=== PATIENT | female | born 1960 | race Caucasian/White ===

== ENCOUNTER 2023-06-26 11:13 | Emergency (ER) | payer OTHER, SELFPAY ==
[2023-06-26 11:29] VITALS: BP 104/71; PULSE 77; RESP 18; TEMP 36.9; O2SAT 98; BMI 20.3
[2023-06-26 14:53] VITALS: BP 119/82; PULSE 77; TEMP 36.4; O2SAT 96
--- NOTE | 2023-06-26 15:33 | ED.GENADULT ---
HPI - General Adult General Chief complaint: Skin/Abscess/Foreign Body Stated complaint: Rash across body Time Seen by Provider: 06/26/23 15:04 History of Present Illness HPI narrative: This 63-year-old female comes in at the request of her primary doctor who is treating her for urinary tract infection. She had taken Macrobid about a month ago for urinary tract infection and developed a rash. She then was on doxycycline as there was suspicion of a sinus infection. Her urinary tract symptoms improved but then returned again 3 or 4 days ago. She had a urinalysis with culture and sensitivity and was started on Macrobid. She developed the rash throughout her body again after being started on Macrobid. Meanwhile her culture and sensitivity reports returned with evidence of a E coli infection. I do not have any these records here. The patient showed me a note from her doctor that this particular strain of E coli responds to Macrobid, Zosyn, or meropenem. The patient arrives with normal vital signs and states that she still is having dysuria symptoms. Related Data Home Medications Medication Instructions Recorded Confirmed hydroxyzine pamoate 50 mg capsule 50 mg PO QPM PRN insomnia 06/26/23 06/26/23 sertraline 100 mg tablet 100 mg PO DAILY 06/26/23 06/26/23 trazodone 150 mg tablet 150 mg PO QPM PRN insomnia 06/26/23 06/26/23 Previous Rx's Medication Instructions Recorded cephalexin 500 mg capsule 500 mg PO TID 7 days #21 caps 06/26/23 Allergies Allergy/AdvReac Type Severity Reaction Status Date / Time macrobid Allergy Mild all over Uncoded 06/26/23 11:41 body rash Review of Systems Status of ROS: Reports: 10 or more systems reviewed and unremarkable except as noted in History and below Narrative: Constitutional: No fevers, no weight gain or loss. Eyes: No discharge. No vision changes. HENT: No congestion, no sore throat, no ear pain. Cardiovascular: No chest pain, no palpitations. Respiratory: No shortness of breath, no wheezes, no cough. Gastrointestinal: No abdominal pain, no vomiting, no diarrhea. Genitourinary: Dysuria symptoms. Musculoskeletal: Normal range of motion. Skin: No rashes, no pruritis. Neurological: No dizziness, weakness, sensory change, speech change. Endo/Heme/Allergies: No bruising or bleeding. No polydipsia. Pysch: no suicidality, no anxiety, no insomnia. All other systems reviewed and are negative. Exam Narrative: Exam Narrative: Constitutional: Well-developed, well-nourished, no acute distress. HEENT: Normocephalic, atraumatic. Neck: Normal range of motion. Nontender. Supple. Heart: Regular. No murmurs. Normal rate. Intact distal pulses. Lungs: Clear to auscultation. No chest discomfort. No wheezes, rhonchi, or rales. Abdomen: Normal bowel sounds. Nontender. No rebound tenderness. Genitalia: Deferred. Back: No midline tenderness. Normal range of motion. Extremities: Normal range of motion. No injury. Skin: Intact. No rash. Warm. No erythema or pallor. Neurologic: No altered sensation. No weakness. Alert and oriented. Psychiatric: No suicidality. No anxiety or depression. No insomnia. Nursing notes and vitals signs are reviewed. Const: Vital Signs, click to edit/add: Vital Signs - 24 hr 06/26/23 11:29 06/26/23 14:53 Temperature 98.5 F 97.6 F Pulse Rate [Right Pulse Oximeter] 77 77 Respiratory Rate 18 Blood Pressure [Ri ght Upper Arm] 104/71 119/82 Pulse Oximetry 98 96 Oxygen Delivery Me thod Room Air Room Air Course Vital Signs Vital signs: Initial Vital Signs Temperature 98.5 F 06/26/23 11:29 Temperature Source Temporal Artery Scan 06/26/23 11:29 Pulse Rate 77 06/26/23 11:29 Respiratory Rate 18 06/26/23 11:29 Blood Pressure 104/71 06/26/23 11:29 Blood Pressure Mean 82 06/26/23 11:29 Pulse Oximetry 98 06/26/23 11:29 Oxygen Delivery Method Room Air 06/26/23 11:29 Vital Signs Temperature 98.5 F 06/26/23 11:29 Pulse Rate 77 06/26/23 11:29 Respiratory Rate 18 06/26/23 11:29 Blood Pressure 104/71 06/26/23 11:29 Pulse Oximetry 98 06/26/23 11:29 Oxygen Delivery Method Room Air 06/26/23 11:29 Temperature 97.6 F 06/26/23 14:53 Pulse Rate 77 06/26/23 14:53 Respiratory Rate 18 12/05/23 11:29 Blood Pressure 119/82 06/26/23 14:53 Pulse Oximetry 96 06/26/23 14:53 Oxygen Delivery Method Room Air 06/26/23 14:53 Discharge Plan Discharge Clinical Impression: Urinary tract infection, Allergic reaction to drug Patient Disposition: Home, Self-Care Condition: Stable Additional Instructions: Take medication as prescribed. Follow up with MD or return if worsening symptoms happen. Prescriptions: New cephalexin 500 mg capsule 500 mg PO TID 7 Days Qty: 21 0RF No Action sertraline 100 mg tablet 100 mg PO DAILY hydroxyzine pamoate 50 mg capsule 50 mg PO QPM PRN (Reason: insomnia) trazodone 150 mg tablet 150 mg PO QPM PRN (Reason: insomnia) Follow Up/Referrals: Deonte Nuñez MD [Primary Care Provider] - Stand Alone Forms: [employer] Info Instructions
[2023-06-26] MEDS: dexAMETHasone 4 MG/ML VIAL 10 MG IV (15:38)
[2023-06-26] MEDS: PIPERACILLIN/TAZOBACTAM 3.375 GM in 0.9 % SODIUM CHLORIDE Mini-bag 100 ML IVPB (15:38)
== END 2023-06-26 16:10 | disposition home or self-care (01) ==
PROVIDERS: Emergency Provider Emergency Medicine Emergency Medical Services; PCP Family Medicine
DX: R21 Rash and other nonspecific skin eruption (principal); T37.8X5A Adverse effect of other specified systemic anti-infectives and antiparasitics, initial encounter
CPT/HCPCS: 96365; 96375; 99284; J1100; J2543